=== PATIENT | male | born 1955 | race Caucasian/White ===

== ENCOUNTER 2019-01-20 07:53 | Inpatient (IN) | payer OTHER ==
[2019-01-20] VITALS (35 sets, daily range): BP systolic 132–191; BP diastolic 87–130
[~2019-01-20] VITALS: Ht 175.3 cm; Wt 92.5 kg
[~2019-01-20 07:53] MED LIST: BENACAR; FLEXERIL PO; JANUMET 50-1,01 EACH; MEDROLDOSEPACK PO; NAPROSYN500 MG PO; PERCOCET 5-3251 EACH PO; VALACYCLOVIR500 MG PO
[2019-01-20 08:22] LABS: ABSOLUTE NEUTROPHILS 3.7 thou/uL (1.4-8.2); BASOPHILS 1.3 % (0.0-2.0); EOSINOPHILS 0.7 % (0.0-3.0); HEMATOCRIT 46.7 % (42.0-52.0); HEMOGLOBIN 16.4 gm/dL (14.0-18.0); LYMPHOCYTES 35.2 % (24.0-44.0); MCH 34.4 pg (26.0-34.0); MCV 98.3 fL (80.0-100.0); MONOCYTES 9.2 % (1.0-8.0); PLATELET COUNT 151 thou/uL (150-400); POLYS 53.6 % (36.0-66.0); RBC 4.75 mil/uL (4.50-6.00); RDW 13.4 % (10.5-14.5)
[2019-01-20 08:26] LABS: ANION GAP 11 mmol/L (7-16); BUN 10 mg/dL (7-18); CHLORIDE 99 mmol/L (98-107); CO2 26 mmol/L (21-32); CREATININE 0.9 mg/dL (0.7-1.3); GLUCOSE 180 mg/dL (74-106); POTASSIUM 4.2 mmol/L (3.5-5.1); SODIUM 136 mmol/L (136-145)
[2019-01-20 08:34] LABS: APTT 31.2 Seconds (24.5-32.8); PROTIME 10.7 Seconds (9.3-11.4)
[2019-01-20 08:35] LABS: TROPONIN-I <0.06 ng/mL (<0.06)
[2019-01-20 09:18] LABS: HCO3 24.6 mmol/L (22.0-26.0); PCO2 44.4 mmHg (35.0-45.0); PO2 89.7 mmHg (80.0-100.0); pH 7.362 (7.360-7.450); sO2 96.5 % (92.0-98.0)
[2019-01-20] MEDS ORDERED: JANUMET XR 50-1 EACH PO (10:23)
--- NOTE | 2019-01-20 13:57 | NUR ---
ATTEMPTED TO CALL REPORT TO ICU AT THIS TIME, NURSE SEVERO
--- NOTE | 2019-01-20 14:19 | NUR ---
TRIED TO CALL REPORT AGAIN AT THIS TIME. NURSE IS UNAVAILABLE
[2019-01-20 15:13] LABS: BE(vivo) -3.5 mmol/L (-2 to +3); HCO3 20.6 mmol/L (22.0-26.0); PCO2 34.8 mmHg (35.0-45.0); PO2 85.7 mmHg (80.0-100.0); sO2 96.5 % (92.0-98.0)
--- NOTE | 2019-01-20 15:19 | EKG ---
[place] [address] [facility] [place] [address] ELECTROCARDIOGRAM REPORT Name: JUAN RAMON MASSEY Room #: 238-P ADM IN M.R.#: [id number] ������������������ Admission: 01/20/19 ������������������ Attend Phys: Jeremiah Stout MD Discharge: ������������������ Date of : 53 Report #: [id number] ����������������������������������������������������������������� [id number] THIS REPORT FOR: //name// [facility] ED Test Date: 2019-01-20 Test Time: 08:10:09 Pat Name: JUAN RAMON MASSEY Department: Room: 238 Gender: M Horse Wrangler: ABRAN : 1955 Requested By: Kellie Abreu Order Number: [id number] MD: Jorge Meredith Measurements Intervals [place] Rate: 123 P: 61 ID: [id number] QRS: -17 QRSD: 99 T: 100 QT: 320 QTc: 458 Interpretive Statements Sinus tachycardia Borderline left axis deviation Anteroseptal infarct, old Nonspecific repol abnormality, lateral leads Compared to ECG 08/29/2015 11:18:[address] and T wave abnormality is more pronounced Electronically Signed On 01-20-2019 15:19:31 CDT by Jorge Meredith [email or web address] ��������������������������������������������� <ELECTRONICALLY SIGNED> ���������������������������������������� By: Jorge Meredith MD, [facility] ��������������������������������������������� 01/20/19 1519 0810 0810 Jorge Meredith MD, [facility] /EPI
--- NOTE | 2019-01-20 17:09 | NUR ---
PT ARRIVED TO UNIT AT 1500. PT WALKED FROM ER CART TO BED. PT STATES HIS BREATHING IS NOT BACK TO WHAT IT NORMALLY IS BUT STATES HE FEELS MUCH BETTER THAN HE DID PRIOR TO ARRIVAL. ORDERS RECEIVED AND ABG'S DRAWN BEDSIDE BY RT. CRITICAL LACTATE AND LACTIC ACID CALLED TO AND ACKNOWLEDGED BY DR. ERICKSON. HR REMAINS 120'S-130'S, BP 140'S-160'S SYSTOLIC. O2 SAT IS 97% ON 4L. PT HAS VISABLE TREMMOR TO RIGHT HAND. PT DENIES TREMMOR. BREATHING TREATMENT GIVEN UPON ARRIVAL TO UNIT. WILL CONTINUE TO CLOSELY MONITOR PT.
--- NOTE | 2019-01-20 20:20 | NUR ---
Pt with hx of ETOH abuse. Last was last night per his report. CIWA 11 upon my assessment. HR and BP are elevated. Notified Gwen Marie NP who is taxation accountant tonight. ETOH withdrawal ordered. Will treat his alcohol withdrawal per protocol.
[2019-01-20 20:31] LABS: CALCIUM 9.1 mg/dL (8.5-10.1); CREATININE 0.9 mg/dL (0.7-1.3); POTASSIUM 4.3 mmol/L (3.5-5.1)
[2019-01-20 20:39] LABS: ALBUMIN 4.2 g/dL (3.4-5.0); MAGNESIUM 1.6 mg/dL (1.8-2.4); PHOSPHORUS 4.2 mg/dL (2.5-4.9); TOTAL BILIRUBIN 0.6 mg/dL (<0.1-1.0); TOTAL PROTEIN 8.4 g/dL (6.4-8.2)
[2019-01-20 20:49] LABS: URINE BILIRUBIN NEGATIVE (Negative); URINE BLOOD 1+ (Negative); URINE CLARITY CLEAR; URINE COLOR YELLOW; URINE GLUCOSE-RANDOM* 3+ (Negative); URINE KETONES TRACE (Negative); URINE LEUKOCYTES NEGATIVE (Negative); URINE NITRITE NEGATIVE (Negative); URINE PROTEIN (DIPSTICK) NEGATIVE (Negative); URINE SPECIFIC GRAVITY 1.015 (1.005-1.035)
[2019-01-20 20:50] LABS: AMP/METHAMP Negative (Negative); BARBITURATES Negative (Negative); BENZODIAZEPINES Negative (Negative); COCAINE Negative (Negative); METHADONE Negative (Negative); OPIATES Negative (Negative); PCP Negative (Negative)
[2019-01-20 21:01] LABS: BACTERIA None Seen /HPF (None Seen); CASTS None Seen /LPF (None Seen); CRYSTALS None Seen /LPF (None Seen); SQUAMOUS 0-3 Few /LPF (0-3); URINE RBC 3-10 Few /HPF (0-2); URINE WBC None Seen /HPF (0-5)
--- NOTE | 2019-01-20 22:00 | NUR ---
start 24 hrs urine collection.
[2019-01-21] VITALS (25 sets, daily range): BP systolic 121–221; BP diastolic 65–119
[2019-01-21 05:11] LABS: ABSOLUTE NEUTROPHILS 9.5 thou/uL (1.4-8.2); BASOPHILS 0.2 % (0.0-2.0); HEMATOCRIT 44.3 % (42.0-52.0); HEMOGLOBIN 15.5 gm/dL (14.0-18.0); LYMPHOCYTES 5.3 % (24.0-44.0); MCH 34.1 pg (26.0-34.0); MCHC 34.9 g/dL (28.0-37.0); MCV 97.7 fL (80.0-100.0); MONOCYTES 3.6 % (1.0-8.0); PLATELET COUNT 133 thou/uL (150-400); POLYS 90.9 % (36.0-66.0); RBC 4.54 mil/uL (4.50-6.00); RDW 13.5 % (10.5-14.5); WBC 10.5 thou/uL (4.0-11.0)
--- NOTE | 2019-01-21 05:25 | NUR ---
No event last night. PPt remains stable this am. He reported no SOB this am. CIWA 8 last night. He received Ativan 1 mg PO with good result. He is able to rest t/o the night. His CIWA down to 4 this am. BP and HR also improved. He is afebrile this am. External catheter remains inplaced. Continue 24 hrs urine collection. Slowly progressing toward POCS.
[2019-01-21 05:26] LABS: CALCIUM 8.5 mg/dL (8.5-10.1); CREATININE 0.7 mg/dL (0.7-1.3); POTASSIUM 4.1 mmol/L (3.5-5.1)
--- NOTE | 2019-01-21 09:06 | 2DMMODE ---
[facility] [place] [address] 2 D/M-MODE ECHOCARDIOGRAM Name: JUAN RAMON MASSEY Room #: 238-P [facility]#: [id number] ������������� Admission: 01/20/19 ������������� Attend Phys: Jeremiah Stout MD Discharge: ��� ������������� ��� Date of : 53 Date of Service: 01/21/19905 �� Report #: [id number] �������� ��������������������������������������������[id number] THIS REPORT FOR: //name// APPROVED REPORT Study performed: 01/21/2019 07:57:49 EXAM: Comprehensive 2D, Doppler, and color-flow Echocardiogram Patient Location: ICU Room #: 238 Status: routine BSA: 2.08 HR: 102 bpm BP: 157/94 mmHg Rhythm: Tachycardia Other Information Study Quality: Adequate Indications COPD Diabetes Hypertension/HDD SOA, profound hypoxia/ r/o shunt Echo Enhancing Agent Indication: Rule out Shunt Agent(s) / Amount(s) Used: Agitated Saline 6 cc 2D Dimensions RVDd: 35.93 mm IVSd: 13.62 (7-11mm) LVOT Diam: 21.96 (18-24mm) LVDd: 51.38 mm PWd: 13.74 (7-11mm) Ascending Ao: 31.60 (22-36mm) LVDs: 38.81 (25-40mm) Aortic Root: 29.12 mm IVC: 23.00 mm Volumes Left Atrial Volume (Systole) Single Plane 4CH: 51.24 mL Single Plane 2CH: 65.87 mL LA ESV Index: 31.00 mL/m2 Aortic Valve AoV Peak Cj.: 4.19 m/s [facility] [address] [place] [address] 2 D/M-MODE ECHOCARDIOGRAM Name: JUAN RAMON MASSEY Room #: 238-P [facility]#: [id number] ������������� Admission: 01/20/19 ������������� Attend Phys: Jeremiah Stout MD Discharge: ��� ������������� ��� Date of : 53 Date of Service: 01/21/19 0906 �� Report #: [id number] �������� ��������������������������������������������[id number] AO Peak Gr.: 70.08 mmHg LVOT Max P.31 mmHg AO Mean Gr.: 37.28 mmHg LVOT Mean P.77 mmHg AO V2 Mean: 2.85 m/s LVOT Max V: 0.91 m/s AO V2 VTI: 79.51 cm LVOT Mean V: 0.61 m/s RASHMI (VTI): 0.87 cm2 LVOT V1 VTI: 18.28 cm RASHMI Vmax: 0.82 cm2 SV (LVOT): 69.21 mL Mitral Valve E/A Ratio: 0.8 MV Decel. Time: 98.65 ms MV E Max Cj.: 1.53 m/s MV A Cj.: 1.90 m/s MV PHT: 28.61 ms IVRT: 76.12 ms Pulmonary Valve PV Peak Cj.: 1.05 m/s PV Peak Gr.: 4.43 mmHg Pulmonary Vein P Vein S: 0.51 m/s P Vein D: 0.38 m/s P Vein S/D Ratio: 1.34 Tricuspid Valve RAP Estimate: 10.00 mmHg Left Ventricle The left ventricle is normal size. There is normal LV segmental wall motion. Mild to moderate concentric left ventricular hypertrophy. The left ventricular systolic function is normal. The left ventricular ejection fraction is within the normal range. LVEF is 55-60%. Transmitral Doppler flow pattern suggests impaired LV relaxation. Right Ventricle The right ventricle is normal size. The right ventricular systolic function is normal. Atria The left atrium size is normal. No shunting by contrast bubble injection. The right atrium size is normal. Aortic Valve Aortic valve is heavily calcified. Mild aortic regurgitation. Moderately severe to severe valvular aortic stenosis. Calculated [facility] [address] [place] [address] 2 D/M-MODE ECHOCARDIOGRAM Name: JUAN RAMON MASSEY Room #: 238-P [facility]#: [id number] ������������� Admission: 01/20/19 ������������� Attend Phys: Jeremiah Stout MD Discharge: ��� ������������� ��� Date of : 53 Date of Service: 01/21/19 0906 �� Report #: [id number] �������� ��������������������������������������������[id number] aortic valve area is 0.9 cm2 with maximum pressure gradient of 70 mmHg and mean pressure gradient of 37 mmHg. Mitral Valve Mild mitral annular calcification. Mild mitral regurgitation. No evidence of mitral valve stenosis. Tricuspid Valve The tricuspid valve is normal in structure. There is no tricuspid valve regurgitation noted. Unable to assess PA pressure. Pulmonic Valve Pulmonic valve is not well visualized. There is no pulmonic valvular regurgitation visualized. Great Vessels The aortic root is normal in size. IVC is mildly dilated and collapses >50% with inspiration. Pericardium There is no pericardial effusion. <Conclusion> The left ventricular systolic function is normal. There is normal LV segmental wall motion. LVEF is 55-60%. No shunting by contrast bubble injection. Aortic valve is heavily calcified. Moderately severe to severe valvular aortic stenosis. Calculated aortic valve area is 0.9 cm2 (Peak gradient of 70 mmHg and mean pressure gradient of 37 mmHg). Mild aortic regurgitation. Mild mitral annular calcification. Mild mitral regurgitation. Pulmonary artery pressure could not be reliably ascertained There is no pericardial effusion. ��������������������������������������������� <ELECTRONICALLY SIGNED> ���������������������������������������� By: Jorge Meredith MD, FACC ��������������������������������������������� 01/21/19905 5 5 Jorge Meredith MD, FACC /INF
--- NOTE | 2019-01-21 10:44 | NUR ---
WHEN PT EATING BREAKFAST HE WAS TREMBLING SIGNIFICANTLY. ST- UP TO 119. ATIVAN PO GIVEN WITH DECREASE IN TREMORS. FOUR LITERS/NC, LUNGS VERY DIMINISHED, CLEARS THROAT, SWALLOWS SECRETIONS, TOLERATING BREAKFAST, CONTINUING 24 HOUR URINE. FAMILY PRESENT AND PROVIDING SUPPORT.
--- NOTE | 2019-01-21 19:02 | NUR ---
PT PROGRESSING. SLIGHT TREMORS-R ARM, ST, 2L/NC, COUGHS UP SCANT UNOBSERVED SECRETIONS, TAKING DEEP BREATHS/COUGH, TOLERATING MEALS, COLLECTING 24 HR URINE SAMPLE- CONDOM CATH REPLACED RELATED TO LEAKING.
--- NOTE | 2019-01-22 01:49 | NUR ---
REPORT IS GIVEN TO CONCHITA REDD.
--- NOTE | 2019-01-22 01:55 | NUR ---
Pt remains stable in conditions. He trasnfered to room 357 by wheelchair,accompanied by me. All belonging sent to [facility] with him. Pt will notify his family about his room number.
--- NOTE | 2019-01-22 02:21 | NUR ---
transferred to 3w from icu. pt has a steady gait up to the restroom. He is relaxed and wanting to watch television and rest. blood pressure at this time does not warrent any metoprolol at this time. he denies needing any lorezepam, he thinks that he simply tremors all the time due to his age. careplan reviewed. resting at this time. oriented to room and surroundings.
[2019-01-22 05:33] VITALS: BP 142/93
[2019-01-22 06:10] LABS: ABSOLUTE NEUTROPHILS 12.1 thou/uL (1.4-8.2); BASOPHILS 0.2 % (0.0-2.0); HEMATOCRIT 44.2 % (42.0-52.0); HEMOGLOBIN 15.2 gm/dL (14.0-18.0); LYMPHOCYTES 3.4 % (24.0-44.0); MCH 33.7 pg (26.0-34.0); MCHC 34.3 g/dL (28.0-37.0); MCV 98.2 fL (80.0-100.0); MONOCYTES 3.8 % (1.0-8.0); PLATELET COUNT 130 thou/uL (150-400); POLYS 92.6 % (36.0-66.0); RDW 13.9 % (10.5-14.5)
[2019-01-22 06:26] LABS: CALCIUM 8.3 mg/dL (8.5-10.1); CREATININE 0.8 mg/dL (0.7-1.3); PHOSPHORUS 3.5 mg/dL (2.5-4.9)
[2019-01-22 07:17] VITALS: BP 143/95
[2019-01-22 08:00] VITALS: BP 143/95
[2019-01-22] MEDS ORDERED: VENTOLIN HFA 1818 GM INH (10:24)
[2019-01-22] MEDS ORDERED: CEFDINIR300 MG PO (10:25)
[2019-01-22] MEDS ORDERED: PREDNISONE 10 M10 MG PO (10:25)
[2019-01-22] MEDS ORDERED: MUCINEX600 MG PO (10:26)
--- NOTE | 2019-01-22 10:44 | NUR ---
PATIENT WILL BE DISCHARGED THIS TIME TO HOME AND HAS NOT VOICED ANY COMPLAIN OF PAIN. STATES HE FEELS MUCH BETTER. RESPIRATIOINS NON LABORED.
--- NOTE | 2019-01-22 17:20 | HC ---
[facility] [place] [address] CONSULTATION Name: JUAN RAMON MASSEY Room #: 357-P [facility]#: [id number] Admission: 01/20/19 ������������������ Attend Phys: Jeremiah Stout MD Discharge: 01/22/19 ������������������ Date of : 53 Report #: [id number] THIS REPORT FOR: //name// CC: FAM unknown Jeremiah Stout DATE OF SERVICE: 01/20/2019 PULMONARY CONSULTATION REFERRING PHYSICIAN: Jeremiah Stout MD REASON FOR REFERRAL: Hypoxia. HISTORY OF PRESENT ILLNESS: The patient is a 63-year-old white male who presented to the ED with progressive dyspnea. A pulmonary consultation was requested. The patient states that he was in his usual state of health until early this morning prior to presentation when he was awoken with acute onset of dyspnea. With severe dyspnea, he presented to the ED. In the ER, the patient was found to be hypoxic requiring high flow O2. Initial CT chest angiogram showed no evidence of pulmonary embolus other than bronchial airway edema. Mild ground glass opacity is noted. The patient has smoked for most of his life. He states that he has never been diagnosed with chronic lung disease. He has never had past history of respiratory failure. PAST MEDICAL HISTORY: Notable for hypertension, aortic stenosis. PAST SURGICAL HISTORY: Status post right knee surgery, herniorrhaphy. ALLERGIES: None noted. HOME MEDICATIONS: Reviewed, is in the MAR. FAMILY HISTORY: Noncontributory. SOCIAL HISTORY: He continues to smoke 1 pack a day. He drinks socially. REVIEW OF SYSTEMS: As mentioned above, otherwise 10-point system review negative. PHYSICAL EXAMINATION: [facility] [address] [place] [address] CONSULTATION Name: JUAN RAMON MASSEY Room #: 357-P [facility]#: [id number] Admission: 01/20/19 ������������������ Attend Phys: Jeremiah Stout MD Discharge: 01/22/19 ������������������ Date of : 53 Report #: [id number] GENERAL: He is awake, alert, in moderate distress due to dyspnea. VITAL SIGNS: Temperature is 98.4 degrees Fahrenheit, pulse is 110, respiratory rate is 24, blood pressure 140/92 mmHg, saturation 93%. HEENT: Normocephalic, atraumatic. NECK: Supple, without lymphadenopathy or thyromegaly. CHEST: Breath sounds are fair. Mild expiratory wheezes. CARDIOVASCULAR: Normal S1, S2. There are no murmurs or gallop. There is no JVD. There is no carotid bruit. Pulses are 2+/4+ bilaterally. ABDOMEN: Soft, nontender, no organomegaly or masses felt. GENITOURINARY: Deferred. RECTAL: Deferred. EXTREMITIES: There is no edema, cyanosis or clubbing. LABORATORY DATA: CT chest angiogram as mentioned above showing no evidence of pulmonary embolus, moderate to severe bronchitis noted in both lower lung pop with bibasilar interstitial infiltrates, septal thickening, small bilateral pleural effusion is seen. Chest x-ray shows mild bibasilar interstitial changes. Echocardiogram showed ejection fraction of 55%, heavily calcified aortic valve, moderate to severe aortic stenosis, pulmonary artery pressure cannot be reliably measured. No shunting noted. Electrolytes are normal. Liver enzymes are mildly elevated. WBC 7000, hemoglobin 16.4, platelets are normal. Arterial blood gas revealed pH 7.39, pCO2 of 44, pO2 of 89 on FiO2 of 100%. IMPRESSION: 1. Acute hypoxic respiratory failure in this 63-year-old white male, probably related to underlying chronic obstructive pulmonary disease. Heart failure cannot be ruled out given moderate to severe aortic stenosis. 2. Probable chronic obstructive pulmonary disease, severity unknown. 3. Tobacco abuse. 4. Aortic stenosis, moderate to severe. 5. Elevated liver function tests. The patient has a history of moderate alcohol consumption. No past history of alcohol withdrawal. RECOMMENDATION: We will recommend continuing corticosteroids, bronchodilators along with broad spectrum antibiotics. Wean O2 for saturation 90%. We would try to keep in euvolemic status, if possible, given aortic stenosis. Deep venous thrombosis and gastrointestinal prophylaxis recommended. Strongly recommend smoking cessation. Once stable clinically, the patient will benefit from outpatient pulmonary followup along with PFTs. [address] [address] CONSULTATION Name: MASSEYJUAN RAMON Room #: 357-P [facility]#: [id number] Admission: 01/20/19 ������������������ Attend Phys: Jeremiah Stout MD Discharge: 01/22/19 ������������������ Date of : 53 Report #: [id number] Thank you for this consultation. ��������������������������������������������� <ELECTRONICALLY SIGNED> ���������������������������������������� By: Ra Carlton MD ��������������������������������������������� 01/22/19 1720 1725 0416 Ra Carlton MD /nt
== END 2019-01-22 11:21 | disposition home or self-care (01) | DRG 189 ==
LOC: ER 07:53 → EROBS 12:15 → 3W 12:15 → ICU 12:15 → 3W 01-22 02:05
PROVIDERS: Emergency Medicine; Internal Medicine Pulmonary Disease; Nurse Practitioner; ADMIT Hospitalist
DX: J96.01 Acute respiratory failure with hypoxia (principal); E87.2 Acidosis; J20.9 Acute bronchitis, unspecified; I10 Essential (primary) hypertension; F17.210 Nicotine dependence, cigarettes, uncomplicated; I35.0 Nonrheumatic aortic (valve) stenosis; E11.9 Type 2 diabetes mellitus without complications; J44.9 Chronic obstructive pulmonary disease, unspecified; Z71.6 Tobacco abuse counseling; Z95.2 Presence of prosthetic heart valve; Z79.899 Other long term (current) drug therapy
CPT/HCPCS: 10078; 10203